=== PATIENT | female | born 1980 | race Caucasian/White ===

== ENCOUNTER 2025-01-17 09:40 | Day surgery (SDC) | payer OTHER ==
[~2025-01-17] VITALS: Ht 162.6 cm; Wt 95.0 kg
[~2025-01-17 09:40] MED LIST: AMOX TR-K CLV1 EAC1 PO; AUGMENTIN 875-1 EACH PO; BENADRYL25 MG PO; CILOXAN5 ML OD; CRUTCH1 EACH; DRAMAMINE25 M1 PO; EXCEDRIN MIGRA1 EAC2 PO; IBLOOD GLUCOSE TEST STRIP 1 EA TEST VI PRN; IBUPROFEN800 MG PO; IRON325 M1 PO; LACTATED RINGER'S 1,000 ML IV SCH; LIDOCAINE HCL 1% 5 ML SDV INJ ONE; NORCO 5-325 TA1 EACH PO; PROZAC20 MG PO; RITALIN5 MG PO; SINGULAIR10 MG PO; TRAMADOL HCL50 MG PO; VALIUM5 MG PO; VENTOLIN HFA18 GM INH; VITAMIN D210 MCG PO; ZYRTEC10 MG PO
[2025-01-17 10:17] VITALS: BP 136/89
[2025-01-17] MEDS ORDERED: LIDOCAINE HCL 2% 5 ML SDV ONE (12:26)
--- NOTE | 2025-01-17 14:08 | NUR ---
01/17/25 1408 Marge Tan 1403-PATIENT ARRIVED TO PACU ON 6L OXYMASK RR EVEN. PATIENT NONAORUSABLE LAYING LEFT LATERAL ABDOMEN SOFT. IVF INFUSING/ SR HR 70'S
[2025-01-17 14:34] VITALS: BP 128/87
== END 2025-01-17 14:40 | disposition home or self-care (01) ==
LOC: DS 09:40 → OPS 09:40 → DS 11:45 → OPS 11:45
PROVIDERS: ATTEND Surgery
PROC: 0DJD8ZZ Inspection of Lower Intestinal Tract, Via Natural or Artificial Opening Endoscopic (ICD-10-PCS; principal; 2025-01-17 11:45)
DX: K92.1 Melena (principal); K57.30 Diverticulosis of large intestine without perforation or abscess without bleeding; K64.8 Other hemorrhoids; E28.2 Polycystic ovarian syndrome; Z90.49 Acquired absence of other specified parts of digestive tract
CPT/HCPCS: 00811; 84703; J2003; J2704; J7121